=== PATIENT | male | born 1960 | race Caucasian/White ===

== ENCOUNTER 2017-11-13 08:43 | Emergency (ER) | payer OTHER ==
[~2017-11-13] VITALS: Ht 144.8 cm; Wt 93.0 kg
--- NOTE | ~2017-11-13 | EKG ---
[address] [address] ELECTROCARDIOGRAM REPORT Name: MARICHUY COELLO Room #: PRATEEK Caputo#: [id number] Admission: 11/13/17 Attend Phys: Discharge: 11/13/17 Date of : 56 Report #: [id number] THIS REPORT FOR: //name// [facility] ED Test Date: 2017-11-13 Test Time: 12:25:19 Pat Name: MARICHUY COELLO Department: Room: Gender: [employer] Teacher: [email or web address] : 1960 Requested By: Carlos Murray Order Number: [id number] MD: Mika Dejesus Measurements Intervals [place] Rate: 69 P: 39 NH: 146 QRS: 68 QRSD: 90 T: 55 QT: 404 QTc: 433 Interpretive Statements Sinus rhythm No previous ECG available for comparison Electronically Signed On 11-14-2017 17:39:24 CDT by Mika Dejesus [email or web address] <ELECTRONICALLY SIGNED> By: Mika Dejesus MD 11/14/17 1739 1225 1225 Mika Dejesus MD /LAZ
[2017-11-13 09:42] LABS: HEMATOCRIT 43.5 % (42.0-52.0); HEMOGLOBIN 14.9 gm/dL (14.0-18.0); MCH 29.3 pg (26.0-34.0); MCHC 34.3 g/dL (28.0-37.0); MCV 85.6 fL (80.0-100.0); PLATELET COUNT 194 thou/uL (150-400); RBC 5.08 mil/uL (4.50-6.00); RDW 13.3 % (10.5-14.5); WBC 10.3 thou/uL (4.0-11.0)
[2017-11-13 09:51] LABS: ANION GAP 8 mmol/L (7-16); BUN 13 mg/dL (7-18); CHLORIDE 102 mmol/L (98-107); CO2 28 mmol/L (21-32); CREATININE 1.1 mg/dL (0.7-1.3); GLUCOSE 105 mg/dL (74-106); POTASSIUM 3.9 mmol/L (3.5-5.1); SODIUM 138 mmol/L (136-145)
[2017-11-13 09:54] LABS: APTT 25.6 Seconds (24.5-32.8); PROTIME 9.9 Seconds (9.3-11.4)
[2017-11-13 09:58] LABS: ALBUMIN 3.7 g/dL (3.4-5.0); SALICYLATE < 2.8 mg/dL (2.8-20.0); SGOT 17 U/L (15-37); SGPT 29 U/L (30-65); TOTAL BILIRUBIN 0.8 mg/dL (<0.1-1.0); TOTAL PROTEIN 7.6 g/dL (6.4-8.2)
[2017-11-13 10:10] LABS: ABSOLUTE NEUTROPHILS 6.3 thou/uL (1.4-8.2)
[2017-11-13 12:35] LABS: URINE BILIRUBIN NEGATIVE (Negative); URINE BLOOD 1+ (Negative); URINE CLARITY CLEAR; URINE COLOR YELLOW; URINE GLUCOSE-RANDOM* NEGATIVE (Negative); URINE KETONES 1+ (Negative); URINE LEUKOCYTES NEGATIVE (Negative); URINE NITRITE NEGATIVE (Negative); URINE PROTEIN (DIPSTICK) NEGATIVE (Negative); URINE UROBILINOGEN 0.2 E.U./dl (0.2-1.0)
[2017-11-13 12:42] LABS: TROPONIN-I <0.06 ng/mL (<0.06)
[2017-11-13 12:43] LABS: AMP/METHAMP Negative (Negative); BARBITURATES Negative (Negative); BENZODIAZEPINES Negative (Negative); COCAINE Negative (Negative); METHADONE Negative (Negative); OPIATES Negative (Negative); PCP Negative (Negative)
[2017-11-13 12:47] LABS: BACTERIA 1-9 Few /HPF (None Seen); CASTS None Seen /LPF (None Seen); CRYSTALS None Seen /LPF (None Seen); SQUAMOUS None Seen /LPF (0-3); URINE RBC None Seen /HPF (0-2); URINE WBC None Seen /HPF (0-5)
[2017-11-13] MEDS ORDERED: NAPROSYN500 MG PO (13:53)
[2017-11-13] MEDS ORDERED: TRAMADOL 50 MG50 MG PO (13:53)
[2017-11-13 14:14] VITALS: BP 154/99
== END 2017-11-13 14:36 | disposition home or self-care (01) ==
LOC: ER 08:43
PROVIDERS: Emergency Medicine
DX: S22.41XA Multiple fractures of ribs, right side, initial encounter for closed fracture (principal); S80.811A Abrasion, right lower leg, initial encounter; S40.811A Abrasion of right upper arm, initial encounter; S40.011A Contusion of right shoulder, initial encounter; J47.9 Bronchiectasis, uncomplicated; V29.10XA Motorcycle passenger injured in collision with unspecified motor vehicles in nontraffic accident, initial encounter; Y93.89 Activity, other specified; Y92.89 Other specified places as the place of occurrence of the external cause; Y99.8 Other external cause status